=== PATIENT | male | born 2000 | race Two or more races ===

== ENCOUNTER 2021-07-17 20:35 | Emergency (ER) | payer OTHER ==
[~2021-07-17] VITALS: Ht 182.9 cm; Wt 102.1 kg
[2021-07-18 01:25] VITALS: BP 137/78
[2021-07-18] MEDS ORDERED: ALBUTEROL SULF 2.5 MG/0.5ML(0.5%) NEB SOLN NEB ONE (02:00)
[2021-07-18] MEDS ORDERED: ALBU108A5 IN (02:46)
== END 2021-07-18 02:47 | disposition home or self-care (01) ==
LOC: ER 20:35
DX: Z77.098 Contact with and (suspected) exposure to other hazardous, chiefly nonmedicinal, chemicals (principal)
CPT/HCPCS: 71045; 94640